=== PATIENT | male | born 1945 | race Two or more races ===

== ENCOUNTER 2022-06-04 09:56 | Emergency (ER) | payer SELFPAY ==
[~2022-06-04] VITALS: Ht 170.2 cm; Wt 90.7 kg
[2022-06-04 09:59] VITALS: BP 139/86
--- NOTE | 2022-06-04 09:59 | NUR ---
BIB [facility] 77 FROM HOME,WORSENING RASH,PLANTAR SURFACE OF BOTH FEET X 3 DAYS
[2022-06-04] MEDS ORDERED: SULF1TAB48 PO (10:00)
[2022-06-04] MEDS ORDERED: FLUC100T8 PO (10:00)
[2022-06-04] MEDS ORDERED: CLOT12CR TP (10:00)
--- NOTE | 2022-06-04 10:20 | NUR ---
Patient discharged to home in stable condition. Written and verbal after care instructions given. Patient verbalizes understanding of instruction.
== END 2022-06-04 10:20 | disposition home or self-care (01) ==
LOC: ER 10:14
DX: B35.3 Tinea pedis (principal); I10 Essential (primary) hypertension; Z79.899 Other long term (current) drug therapy